=== PATIENT | female | born 1945 | race Caucasian/White ===

== ENCOUNTER 2024-08-02 06:01 | Day surgery (SDC) | payer MEDICARE, BC ==
[2024-08-02] MEDS: Lactated Ringers 1,000 ML IV SCH (06:59)
[2024-08-02] MEDS ORDERED: fentaNYL 50 MCG/ML SDV ONE (07:24)
[2024-08-02] MEDS ORDERED: Propofol 200 MG/20 ML SDV ONE ×2 (07:24→08:46)
[2024-08-02 09:48] VITALS: PULSE 66
[2024-08-02 09:56] VITALS: BP 137/63
== END 2024-08-02 09:58 | disposition home or self-care (01) ==
LOC: JP.SDS 06:01
PROVIDERS: ATTEND Family Medicine
DX: Z12.11 Encounter for screening for malignant neoplasm of colon (principal); D12.0 Benign neoplasm of cecum; K57.30 Diverticulosis of large intestine without perforation or abscess without bleeding; I10 Essential (primary) hypertension; R19.5 Other fecal abnormalities
CPT/HCPCS: 45380; J2704; J3010; J7120; 00811-QZ